=== PATIENT | male | born 1960 | race Caucasian/White ===

== ENCOUNTER 2019-06-29 20:19 | Inpatient (IN) | payer OTHER ==
[2019-06-29 20:32] LABS: ADD MAN DIFF? NO
[2019-06-29] MEDS: IPRATROPIUM (NEB) 0.5 MG/2.5 ML AMP INH (20:32)
[2019-06-29] MEDS: ALBUTEROL 0.5% (NEB) 2.5 MG/0.5 ML AMP INH (20:32)
[2019-06-29 20:33] LABS: WHITE BLOOD COUNT 6.1 10^3/ul (4.8-10.8)
[2019-06-29 20:33] LABS: ABNORMAL IP MESSAGE 1; BASOPHILS % 0.3 % (0.0-2.0); HEMATOCRIT 38.7 % (42.0-52.0); HEMOGLOBIN 12.7 g/dl (14.0-18.0); LYMPHOCYTES # 0.6 10^3/ul (0.8-2.9); LYMPHOCYTES % 9.6 % (15.0-51.0); MEAN CORPUSCULAR HGB CONC 32.8 g/dl (32.0-37.0); MEAN CORPUSCULAR VOLUME 91.3 fl (82.0-101.0); MEAN PLATELET VOLUME 10.9 fl (7.4-10.4); MONOCYTE # 0.4 10^3/ul (0.3-0.9); MONOCYTES % 6.8 % (0.0-11.0); PLATELET COUNT 107 10^3/UL (140-415); POSITIVE DIFF @See below; RED BLOOD COUNT 4.24 10^6/ul (4.70-6.10); RED CELL DISTRIBUTION WIDTH 14.6 % (11.5-14.5)
[2019-06-29] MEDS: METHYLPREDNISOLONE 125 MG INJ IV (20:40)
[2019-06-29 20:50] LABS: AADO2 Arterial 178.3 mmHg (7.0-24.0); Allen Test ACCEPTAB; Arterial Base Excess -0.1 mmol/L (-3.0-3); Arterial Blood Gas Oxygen Sat 98.3 mmHG (95.0-98.0); Arterial COHb 1.1 % (0.0-3.0); Arterial Fraction of Oxyhgb 96.9 % (93.0-99.0); Arterial HCO3 24.4 mmol/L (22.0-26.0); Arterial MetHb 0.3 % (0.0-1.5); Arterial pCO2 39.3 mmhg (35-45); MODE MASK - SIMPLE; Site Right Radial
[2019-06-29 20:51] LABS: ALANINE AMINOTRANSFERASE 42 IU/L (13-69); ALBUMIN 3.3 g/dl (3.3-4.9); ALBUMIN/GLOBULIN RATIO 1.03; ALKALINE PHOSPHATASE 88 IU/L (42-121); AMYLASE 43 U/L (11-123); ANION GAP 7 (5-13); ASPARTATE AMINO TRANSFERASE 19 IU/L (15-46); BILIRUBIN,INDIRECT 1.2 mg/dl (0-1.1); BILIRUBIN,TOTAL 1.2 mg/dl (0.2-1.3); BLOOD UREA NITROGEN 25 mg/dl (7-20); CALCIUM 8.6 mg/dl (8.4-10.2); CARBON DIOXIDE 26 mmol/L (21-31); CHLORIDE 103 mmol/L (97-110); CREATININE 1.29 mg/dl (0.61-1.24); Estimated GFR 57 mL/min (>60); LIPASE 32 U/L (23-300); POTASSIUM 4.1 mmol/L (3.5-5.1); SODIUM 136 mmol/L (135-144); TOTAL PROTEIN 6.5 g/dl (6.1-8.1)
[2019-06-29 20:55] LABS: GLUCOSE 454 mg/dl (70-220); INR 1.26; PROTIME 15.9 Sec (11.9-14.9); PT RATIO 1.2
[2019-06-29 20:56] LABS: PARTIAL THROMBOPLASTIN TIME 23.1 Sec (23.0-35.0)
[2019-06-29 21:02] LABS: TROPONIN-I 0.051 ng/ml (0.000-0.120)
[2019-06-29] MEDS: INSULIN LISPRO 100 UNIT/ML VIAL SC (21:29)
[2019-06-29] MEDS ORDERED: DEXTROSE 50% 50 ML SYRINGE IV ×2 (21:30)
[2019-06-29] MEDS ORDERED: GLUCAGON 1 MG INJ IM (21:30)
[2019-06-29] MEDS ORDERED: GLUCOSE GEL 15 GRAM TUBE PO ×2 (21:30)
[2019-06-29] MEDS ORDERED: GLUCOSE GEL 15 GRAM TUBE BUCCAL (21:30)
[2019-06-29] MEDS ORDERED: NALOXONE (0.4 MG/ML) INJ (21:37)
[2019-06-29] MEDS: NALOXONE 2 MG SYG IV (21:41)
[2019-06-29] MEDS: FUROSEMIDE 40 MG INJ IV (22:01)
[2019-06-29 22:23] LABS: AMMONIA 11 umol/l (9-30)
[2019-06-29 22:38] LABS: B-TYPE NATRIURETIC PEPTIDE 19700 PG/ML (0-125)
[2019-06-29] MEDS ORDERED: hydrALAzine 20 MG INJ IV (23:30)
[2019-06-29] MEDS ORDERED: DOCUSATE SODIUM 100 MG CAP PO (23:30)
[2019-06-29] MEDS ORDERED: NACL 0.9% 3 ML SYG IV (23:30)
[2019-06-29] MEDS ORDERED: BISACODYL (EC) 5 MG TAB PO (23:30)
[2019-06-29] MEDS ORDERED: ONDANSETRON 4 MG INJ IV (23:30)
[2019-06-30] MEDS: INSULIN GLARGINE [LANTus] (100 UNITS/ML) SYG SC ×3 (00:27→20:27)
[2019-06-30] MEDS: ALBUTEROL/IPRATROPIUM (NEB) 3 ML AMP HHN ×6 (01:15→20:36)
[2019-06-30] MEDS: ACCU-CHEK XX (02:56)
[2019-06-30] MEDS: INSULIN REGULAR, HUMAN 100 UNIT/1 ML 3ML VIAL IV (03:19)
[2019-06-30] MEDS: FUROSEMIDE 40 MG INJ IV ×2 (06:34→17:41)
[2019-06-30] MEDS: PANTOPRAZOLE (EC) 40 MG TAB PO (06:34)
[2019-06-30 06:45] LABS: ADD MAN DIFF? NO
[2019-06-30 06:48] LABS: ABNORMAL IP MESSAGE 1; HEMATOCRIT 38.4 % (42.0-52.0); HEMOGLOBIN 12.7 g/dl (14.0-18.0); LYMPHOCYTES # 0.2 10^3/ul (0.8-2.9); LYMPHOCYTES % 3.6 % (15.0-51.0); MEAN CORPUSCULAR HEMOGLOBIN 30.5 pg (29.0-33.0); MEAN CORPUSCULAR HGB CONC 33.1 g/dl (32.0-37.0); MEAN CORPUSCULAR VOLUME 92.3 fl (82.0-101.0); MEAN PLATELET VOLUME 10.8 fl (7.4-10.4); MONOCYTE # 0.1 10^3/ul (0.3-0.9); MONOCYTES % 1.3 % (0.0-11.0); NEUTROPHIL # 4.2 10^3/ul (1.6-7.5); NEUTROPHILS % 94.7 % (39.0-77.0); PLATELET COUNT 86 10^3/UL (140-415); POSITIVE DIFF @See below; RED BLOOD COUNT 4.16 10^6/ul (4.70-6.10); RED CELL DISTRIBUTION WIDTH 14.2 % (11.5-14.5)
[2019-06-30 06:48] LABS: WHITE BLOOD COUNT 4.5 10^3/ul (4.8-10.8)
[2019-06-30] MEDS: INSULIN ASPART [NOVOLOG] 3 ML PEN SC ×8 (06:56→21:23)
[2019-06-30 07:12] LABS: ALANINE AMINOTRANSFERASE 42 IU/L (13-69); ALBUMIN 3.2 g/dl (3.3-4.9); ALKALINE PHOSPHATASE 92 IU/L (42-121); ANION GAP 6 (5-13); ASPARTATE AMINO TRANSFERASE 18 IU/L (15-46); BILIRUBIN,INDIRECT 1.1 mg/dl (0-1.1); BILIRUBIN,TOTAL 1.1 mg/dl (0.2-1.3); BLOOD UREA NITROGEN 30 mg/dl (7-20); CALCIUM 8.4 mg/dl (8.4-10.2); CARBON DIOXIDE 27 mmol/L (21-31); CHLORIDE 102 mmol/L (97-110); CHOL/HDL RATIO 2.2 RATIO; CHOLESTEROL 93 mg/dl (100-200); CREATININE 1.47 mg/dl (0.61-1.24); Estimated GFR 49 mL/min (>60); HDL CHOLESTEROL 42 mg/dl (30-78); LDL CHOLESTEROL,CALCULATED 42 mg/dl; MAGNESIUM 1.7 mg/dl (1.7-2.5); POTASSIUM 4.3 mmol/L (3.5-5.1); SODIUM 135 mmol/L (135-144); TOTAL PROTEIN 6.4 g/dl (6.1-8.1); TRIGLYCERIDES 46 mg/dl (0-149)
[2019-06-30 07:23] LABS: GLUCOSE 429 mg/dl (70-220)
[2019-06-30 07:31] LABS: ETHANOL < 10.0 mg/dl (0-0)
[2019-06-30 07:41] LABS: THYROID STIMULATING HORMONE 0.302 MIU/L (0.465-4.680)
[2019-06-30 07:44] LABS: HEPATITIS B SURFACE ANTIGEN NEGATIVE (NEGATIVE)
[2019-06-30] MEDS ORDERED: INSULIN ASPART [NOVOLOG] 3 ML PEN SC (07:55)
[2019-06-30 08:01] LABS: HEPATITIS B SURFACE ANTIBODY POSITIVE (NEGATIVE)
[2019-06-30 08:03] LABS: HEPATITIS C VIRAL ANTIBODY REACTIVE (NEGATIVE)
[2019-06-30 08:09] LABS: CREATINE KINASE 39 IU/L (23-200)
[2019-06-30] MEDS: METHYLPREDNISOLONE 40 MG INJ IV ×2 (08:15)
[2019-06-30 08:22] LABS: CK INDEX 5.2; CK-MB 2.04 ng/ml (0.0-2.4); TROPONIN-I 0.036 ng/ml (0.000-0.120)
[2019-06-30] MEDS: NPH, HUMAN INSULIN ISOPHANE 3ML VIAL SC ×2 (08:25→11:39)
[2019-06-30] MEDS: NICOTINE (14 MG/24 HR) PATCH TRANSDERM (11:54)
[2019-06-30] MEDS ORDERED: hydrALAzine 20 MG INJ IV (12:00)
[2019-06-30 12:55] LABS: CREATINE KINASE 51 IU/L (23-200)
[2019-06-30 13:07] LABS: CK INDEX 4.2; CK-MB 2.16 ng/ml (0.0-2.4); TROPONIN-I 0.021 ng/ml (0.000-0.120)
[2019-06-30] MEDS: TIOTROPIUM 18 MCG CAPSULE INHA DEV INH (14:13)
[2019-06-30 16:11] LABS: ALANINE AMINOTRANSFERASE 30 IU/L (13-69); ALBUMIN 3.3 g/dl (3.3-4.9); ALBUMIN/GLOBULIN RATIO 1.03; ALKALINE PHOSPHATASE 79 IU/L (42-121); ANION GAP 10 (5-13); ASPARTATE AMINO TRANSFERASE 19 IU/L (15-46); BILIRUBIN,INDIRECT 0.9 mg/dl (0-1.1); BILIRUBIN,TOTAL 0.9 mg/dl (0.2-1.3); BLOOD UREA NITROGEN 39 mg/dl (7-20); CALCIUM 8.7 mg/dl (8.4-10.2); CARBON DIOXIDE 25 mmol/L (21-31); CHLORIDE 100 mmol/L (97-110); CREATINE KINASE 53 IU/L (23-200); CREATININE 1.64 mg/dl (0.61-1.24); Estimated GFR 43 mL/min (>60); GLUCOSE 373 mg/dl (70-220); POTASSIUM 4.4 mmol/L (3.5-5.1); SODIUM 135 mmol/L (135-144); TOTAL PROTEIN 6.5 g/dl (6.1-8.1)
[2019-06-30] MEDS: SPIRONOLACTONE 25 MG TAB PO (16:21)
[2019-06-30] MEDS: ASPIRIN (EC) 81 MG TAB PO (16:21)
[2019-06-30] MEDS: POTASSIUM CHLORIDE (SR) 20 MEQ TAB PO (16:21)
[2019-06-30 16:23] LABS: CK INDEX 5.3; TROPONIN-I 0.025 ng/ml (0.000-0.120)
[2019-06-30] MEDS ORDERED: ALBUTEROL HFA 8 GM INHALER INH (17:00)
[2019-06-30] MEDS ORDERED: NON-FORMULARY/PATIENT OWN MED (Insulin Lispro (Humalog Kwikpen U-100) 6 UNIT) SQ (17:00)
[2019-06-30 18:48] LABS: PROCALCITONIN 0.04 ng/mL (0.00-0.10)
[2019-06-30] MEDS ORDERED: INSULIN GLARGINE [LANTus] (100 UNITS/ML) SYG SC (20:00)
[2019-06-30] MEDS: traZODone 100 MG TAB PO (23:28)
[2019-07-01] MEDS: ALBUTEROL/IPRATROPIUM (NEB) 3 ML AMP HHN ×6 (01:20→20:35)
[2019-07-01] MEDS: ACCU-CHEK XX (02:00)
[2019-07-01] MEDS: FUROSEMIDE 40 MG INJ IV ×2 (05:49→17:08)
[2019-07-01] MEDS: PANTOPRAZOLE (EC) 40 MG TAB PO (05:49)
[2019-07-01 07:23] LABS: ADD MAN DIFF? NO
[2019-07-01 07:29] LABS: WHITE BLOOD COUNT 7.2 10^3/ul (4.8-10.8)
[2019-07-01 07:29] LABS: ABNORMAL IP MESSAGE 1; BASOPHILS % 0.1 % (0.0-2.0); EOSINOPHILS % 0.1 % (0.0-7.0); HEMATOCRIT 36.9 % (42.0-52.0); LYMPHOCYTES # 0.5 10^3/ul (0.8-2.9); LYMPHOCYTES % 6.7 % (15.0-51.0); MEAN CORPUSCULAR HEMOGLOBIN 30.3 pg (29.0-33.0); MEAN CORPUSCULAR HGB CONC 32.5 g/dl (32.0-37.0); MEAN CORPUSCULAR VOLUME 93.2 fl (82.0-101.0); MEAN PLATELET VOLUME 10.9 fl (7.4-10.4); MONOCYTE # 0.4 10^3/ul (0.3-0.9); MONOCYTES % 5.8 % (0.0-11.0); NEUTROPHIL # 6.2 10^3/ul (1.6-7.5); NEUTROPHILS % 86.9 % (39.0-77.0); PLATELET COUNT 88 10^3/UL (140-415); POSITIVE DIFF @See below; RED BLOOD COUNT 3.96 10^6/ul (4.70-6.10); RED CELL DISTRIBUTION WIDTH 14.4 % (11.5-14.5)
[2019-07-01 07:51] LABS: CREATINE KINASE 34 IU/L (23-200)
[2019-07-01 07:53] LABS: ALANINE AMINOTRANSFERASE 35 IU/L (13-69); ALBUMIN 3.1 g/dl (3.3-4.9); ALKALINE PHOSPHATASE 75 IU/L (42-121); ANION GAP 7 (5-13); ASPARTATE AMINO TRANSFERASE 16 IU/L (15-46); BILIRUBIN,INDIRECT 0.6 mg/dl (0-1.1); BILIRUBIN,TOTAL 0.6 mg/dl (0.2-1.3); BLOOD UREA NITROGEN 47 mg/dl (7-20); CALCIUM 8.5 mg/dl (8.4-10.2); CARBON DIOXIDE 27 mmol/L (21-31); CHLORIDE 98 mmol/L (97-110); CHOLESTEROL 86 mg/dl (100-200); CREATININE 1.69 mg/dl (0.61-1.24); Estimated GFR 42 mL/min (>60); GLUCOSE 333 mg/dl (70-220); HDL CHOLESTEROL 43 mg/dl (30-78); LDL CHOLESTEROL,CALCULATED 32 mg/dl; MAGNESIUM 1.8 mg/dl (1.7-2.5); POTASSIUM 4.2 mmol/L (3.5-5.1); SODIUM 132 mmol/L (135-144); TOTAL PROTEIN 6.2 g/dl (6.1-8.1); TRIGLYCERIDES 53 mg/dl (0-149)
[2019-07-01 08:05] LABS: TROPONIN-I 0.037 ng/ml (0.000-0.120)
[2019-07-01 08:06] LABS: CK-MB 3.05 ng/ml (0.0-2.4)
[2019-07-01] MEDS: TIOTROPIUM 18 MCG CAPSULE INHA DEV INH (08:26)
[2019-07-01] MEDS: predniSONE 20 MG TAB PO (08:27)
[2019-07-01] MEDS: BALSAM PERU/CASTOR OIL 60 GM TUBE TOP (08:27)
[2019-07-01] MEDS: NICOTINE (14 MG/24 HR) PATCH TRANSDERM (08:27)
[2019-07-01] MEDS: FERROUS SULFATE (EC) 325 MG TAB PO (08:28)
[2019-07-01] MEDS: ASPIRIN (EC) 81 MG TAB PO (08:28)
[2019-07-01] MEDS: LORATADINE 10 MG TAB PO (08:28)
[2019-07-01] MEDS: SPIRONOLACTONE 25 MG TAB PO (08:28)
[2019-07-01 08:32] LABS: FREE T4 (FREE THYROXINE) 1.34 ng/dl (0.78-2.44)
[2019-07-01] MEDS: INSULIN ASPART [NOVOLOG] 3 ML PEN SC ×7 (08:37→20:26)
[2019-07-01] MEDS: NPH, HUMAN INSULIN ISOPHANE 3ML VIAL SC (08:37)
[2019-07-01] MEDS ORDERED: ASPIRIN (EC) 81 MG TAB PO (09:00)
[2019-07-01 09:37] LABS: B-TYPE NATRIURETIC PEPTIDE 12000 PG/ML (0-125)
[2019-07-01] MEDS ORDERED: INSULIN ASPART [NOVOLOG] 3 ML PEN SC ×2 (12:30→17:55)
[2019-07-01] MEDS ORDERED: PROPRANOLOL 10 MG TAB PO (13:00)
[2019-07-01] MEDS: PROPRANOLOL 10 MG TAB PO (15:40)
[2019-07-01 18:05] LABS: ADD UMIC YES; UR ASCORBIC ACID NEGATIVE (NEGATIVE); UR BACTERIA FEW /HPF (NONE SEEN); UR BILIRUBIN (Dip) NEGATIVE (NEGATIVE); UR BLOOD (Dip) 1+ mg/dL (NEGATIVE); UR CLARITY CLEAR (CLEAR); UR COLOR YELLOW (YELLOW); UR GLUCOSE (Dip) NEGATIVE (NEGATIVE); UR KETONES (Dip) NEGATIVE (NEGATIVE); UR LEUKOCYTE ESTERASE (Dip) NEGATIVE Leu/ul (NEGATIVE); UR NITRITE (Dip) NEGATIVE (NEGATIVE); UR RBC 1 /HPF (0-5); UR SPECIFIC GRAVITY (Dip) 1.011 (1.003-1.030); UR TOTAL PROTEIN (Dip) 1+ mg/dl (NEGATIVE); UR UROBILINOGEN (Dip) NEGATIVE (NEGATIVE); UR WBC 1 /HPF (0-5)
[2019-07-01 18:11] LABS: CREATININE,URINE RANDOM 63.37 mg/dl (20-370); PROTEIN/CREAT RATIO 0.47 RATIO
[2019-07-01 18:23] LABS: AMPHETAMINE/METHAMPHETAMINE POSITIVE (NEGATIVE); BARBITURATES NEGATIVE (NEGATIVE); BENZODIAZEPINES NEGATIVE (NEGATIVE); CANNABINOIDS NEGATIVE (NEGATIVE); COCAINE NEGATIVE (NEGATIVE); OPIATES NEGATIVE (NEGATIVE)
[2019-07-01] MEDS ORDERED: INSULIN GLARGINE [LANTus] (100 UNITS/ML) SYG SC (20:00)
[2019-07-01] MEDS: INSULIN GLARGINE [LANTus] (100 UNITS/ML) SYG SC (20:35)
[2019-07-01] MEDS: METOPROLOL (XL) 25 MG TAB PO (20:50)
[2019-07-01] MEDS: MAGNESIUM SULFATE 3 GM in DEXTROSE 5% 100 ML IVPB (21:08)
[2019-07-01] MEDS: traZODone 100 MG TAB PO (21:13)
[2019-07-02] MEDS: ALBUTEROL/IPRATROPIUM (NEB) 3 ML AMP HHN ×6 (00:58→21:11)
[2019-07-02] MEDS: ACCU-CHEK XX ×2 (02:00→23:45)
[2019-07-02] MEDS: ACETAMINOPHEN 325 MG TAB PO (04:54)
[2019-07-02] MEDS: PANTOPRAZOLE (EC) 40 MG TAB PO (05:48)
[2019-07-02] MEDS: FUROSEMIDE 40 MG INJ IV (08:32)
[2019-07-02] MEDS: TIOTROPIUM 18 MCG CAPSULE INHA DEV INH (08:33)
[2019-07-02] MEDS: ASPIRIN (EC) 81 MG TAB PO (08:33)
[2019-07-02] MEDS: METOPROLOL (XL) 25 MG TAB PO ×2 (08:34→21:03)
[2019-07-02] MEDS: FERROUS SULFATE (EC) 325 MG TAB PO (08:34)
[2019-07-02] MEDS: predniSONE 20 MG TAB PO (08:34)
[2019-07-02] MEDS: SPIRONOLACTONE 25 MG TAB PO (08:34)
[2019-07-02] MEDS: NPH, HUMAN INSULIN ISOPHANE 3ML VIAL SC (08:35)
[2019-07-02] MEDS: INSULIN ASPART [NOVOLOG] 3 ML PEN SC ×8 (08:37→21:56)
[2019-07-02] MEDS: LORATADINE 10 MG TAB PO (08:38)
[2019-07-02] MEDS: NICOTINE (14 MG/24 HR) PATCH TRANSDERM (08:39)
[2019-07-02] MEDS: BALSAM PERU/CASTOR OIL 60 GM TUBE TOP (08:39)
[2019-07-02 08:57] LABS: ANION GAP 6 (5-13); BLOOD UREA NITROGEN 47 mg/dl (7-20); CALCIUM 8.4 mg/dl (8.4-10.2); CARBON DIOXIDE 31 mmol/L (21-31); CHLORIDE 94 mmol/L (97-110); CREATININE 1.54 mg/dl (0.61-1.24); Estimated GFR 46 mL/min (>60); GLUCOSE 291 mg/dl (70-220); POTASSIUM 4.1 mmol/L (3.5-5.1); SODIUM 131 mmol/L (135-144)
[2019-07-02] MEDS ORDERED: predniSONE 20 MG TAB PO (09:00)
[2019-07-02] MEDS ORDERED: NPH, HUMAN INSULIN ISOPHANE 3ML VIAL SC (09:00)
[2019-07-02 09:01] LABS: MAGNESIUM 2.3 mg/dl (1.7-2.5)
[2019-07-02 09:04] LABS: B-TYPE NATRIURETIC PEPTIDE 7150 PG/ML (0-125)
[2019-07-02 09:52] LABS: COMPLEMENT C3 49 mg/dl (88-165); COMPLEMENT C4 11 mg/dl (14-44)
[2019-07-02] MEDS: LEVOFLOXACIN 500MG/D5W (PMX) 100 ML IVPB (15:50)
[2019-07-02] MEDS: INSULIN GLARGINE [LANTus] (100 UNITS/ML) SYG SC (21:09)
[2019-07-02] MEDS: traZODone 50 MG TAB PO (21:52)
[2019-07-03] MEDS: ALBUTEROL/IPRATROPIUM (NEB) 3 ML AMP HHN ×6 (01:50→21:00)
[2019-07-03] MEDS: ACCU-CHEK XX (02:10)
[2019-07-03] MEDS: ALPRAZOLAM 0.25 MG TAB PO (03:40)
[2019-07-03] MEDS: PANTOPRAZOLE (EC) 40 MG TAB PO (05:39)
[2019-07-03] MEDS: INSULIN ASPART [NOVOLOG] 3 ML PEN SC ×7 (07:55→21:32)
[2019-07-03] MEDS: SPIRONOLACTONE 25 MG TAB PO (08:32)
[2019-07-03] MEDS: LORATADINE 10 MG TAB PO (08:32)
[2019-07-03] MEDS: ASPIRIN (EC) 81 MG TAB PO (08:32)
[2019-07-03] MEDS: METOPROLOL (XL) 25 MG TAB PO ×2 (08:37→20:45)
[2019-07-03] MEDS: FUROSEMIDE 40 MG INJ IV (08:38)
[2019-07-03] MEDS: BALSAM PERU/CASTOR OIL 60 GM TUBE TOP (08:38)
[2019-07-03] MEDS: FERROUS SULFATE (EC) 325 MG TAB PO (08:39)
[2019-07-03] MEDS: NICOTINE (14 MG/24 HR) PATCH TRANSDERM (08:39)
[2019-07-03] MEDS: TIOTROPIUM 18 MCG CAPSULE INHA DEV INH (08:39)
[2019-07-03 08:59] LABS: ADD MAN DIFF? NO
[2019-07-03 09:08] LABS: ABNORMAL IP MESSAGE 1; BASOPHILS % 0.4 % (0.0-2.0); EOSINOPHILS % 0.2 % (0.0-7.0); HEMATOCRIT 37.8 % (42.0-52.0); HEMOGLOBIN 12.2 g/dl (14.0-18.0); LYMPHOCYTES # 0.5 10^3/ul (0.8-2.9); LYMPHOCYTES % 8.1 % (15.0-51.0); MEAN CORPUSCULAR HEMOGLOBIN 30.8 pg (29.0-33.0); MEAN CORPUSCULAR HGB CONC 32.3 g/dl (32.0-37.0); MEAN CORPUSCULAR VOLUME 95.5 fl (82.0-101.0); MEAN PLATELET VOLUME 11.3 fl (7.4-10.4); MONOCYTE # 0.6 10^3/ul (0.3-0.9); MONOCYTES % 9.9 % (0.0-11.0); NEUTROPHIL # 4.6 10^3/ul (1.6-7.5); NEUTROPHILS % 80.9 % (39.0-77.0); PLATELET COUNT 94 10^3/UL (140-415); POSITIVE DIFF @See below; RED BLOOD COUNT 3.96 10^6/ul (4.70-6.10); RED CELL DISTRIBUTION WIDTH 14.3 % (11.5-14.5)
[2019-07-03 09:08] LABS: WHITE BLOOD COUNT 5.7 10^3/ul (4.8-10.8)
[2019-07-03 09:57] LABS: ANION GAP 7 (5-13); BLOOD UREA NITROGEN 49 mg/dl (7-20); CALCIUM 8.4 mg/dl (8.4-10.2); CARBON DIOXIDE 31 mmol/L (21-31); CHLORIDE 97 mmol/L (97-110); CREATININE 1.52 mg/dl (0.61-1.24); Estimated GFR 47 mL/min (>60); GLUCOSE 115 mg/dl (70-220); MAGNESIUM 2.2 mg/dl (1.7-2.5); PHOSPHORUS 4.3 mg/dl (2.5-4.9); POTASSIUM 4.1 mmol/L (3.5-5.1); SODIUM 135 mmol/L (135-144)
[2019-07-03] MEDS: LIDOCAINE 1% (MPF) 5 ML VIAL (12:07)
[2019-07-03 13:02] LABS: FLD PMN% 16.8 %; FLD RBC 9000 /uL; FLD WBC 553 /cmm
[2019-07-03 13:29] LABS: FLUID LD 227 U/L; FLUID TOTAL PROTEIN < 2.0 g/dl; FLUID TYPE THORACENTESIS FLUID
[2019-07-03 13:38] LABS: FLD CLARITY BLOODY; FLD COLOR RED; PATH REVIEW? YES
[2019-07-03 13:38] LABS: FLD TYPE THORACENTHESIS
[2019-07-03 13:39] LABS: FLUID TYPE THORACENTESIS FLUID
[2019-07-03 13:43] LABS: FLUID GLUCOSE 140 mg/dl
[2019-07-03] MEDS: LEVOFLOXACIN 500MG/D5W (PMX) 100 ML IVPB (16:23)
[2019-07-03 18:26] LABS: COMPLEMENT, TOTAL (CH50) <13 U/mL (31-60)
[2019-07-03] MEDS: INSULIN GLARGINE [LANTus] (100 UNITS/ML) SYG SC (20:56)
[2019-07-03] MEDS: traZODone 50 MG TAB PO (22:29)
[2019-07-04] MEDS: ALBUTEROL/IPRATROPIUM (NEB) 3 ML AMP HHN ×6 (01:33→20:46)
[2019-07-04] MEDS: ACCU-CHEK XX (02:20)
[2019-07-04] MEDS: PANTOPRAZOLE (EC) 40 MG TAB PO (06:28)
[2019-07-04] MEDS: LEVOFLOXACIN 500 MG TAB PO (06:28)
[2019-07-04] MEDS: INSULIN ASPART [NOVOLOG] 3 ML PEN SC ×7 (07:55→20:14)
[2019-07-04 08:10] LABS: ADD MAN DIFF? NO
[2019-07-04 08:14] LABS: ABNORMAL IP MESSAGE 1; BASOPHILS % 0.2 % (0.0-2.0); EOSINOPHILS % 0.2 % (0.0-7.0); HEMATOCRIT 37.3 % (42.0-52.0); HEMOGLOBIN 12.2 g/dl (14.0-18.0); LYMPHOCYTES # 0.4 10^3/ul (0.8-2.9); LYMPHOCYTES % 6.4 % (15.0-51.0); MEAN CORPUSCULAR HEMOGLOBIN 30.7 pg (29.0-33.0); MEAN CORPUSCULAR HGB CONC 32.7 g/dl (32.0-37.0); MEAN CORPUSCULAR VOLUME 93.7 fl (82.0-101.0); MEAN PLATELET VOLUME 10.8 fl (7.4-10.4); MONOCYTE # 0.4 10^3/ul (0.3-0.9); MONOCYTES % 7.1 % (0.0-11.0); NEUTROPHILS % 85.6 % (39.0-77.0); PLATELET COUNT 81 10^3/UL (140-415); POSITIVE DIFF @See below; RED BLOOD COUNT 3.98 10^6/ul (4.70-6.10); RED CELL DISTRIBUTION WIDTH 14.3 % (11.5-14.5)
[2019-07-04 08:14] LABS: WHITE BLOOD COUNT 5.8 10^3/ul (4.8-10.8)
[2019-07-04] MEDS: NICOTINE (14 MG/24 HR) PATCH TRANSDERM (08:42)
[2019-07-04] MEDS: SPIRONOLACTONE 25 MG TAB PO (08:43)
[2019-07-04] MEDS: ASPIRIN (EC) 81 MG TAB PO (08:43)
[2019-07-04] MEDS: FERROUS SULFATE (EC) 325 MG TAB PO (08:43)
[2019-07-04] MEDS: LORATADINE 10 MG TAB PO (08:43)
[2019-07-04 08:51] LABS: ANION GAP 3 (5-13); BLOOD UREA NITROGEN 41 mg/dl (7-20); CALCIUM 8.1 mg/dl (8.4-10.2); CARBON DIOXIDE 33 mmol/L (21-31); CHLORIDE 99 mmol/L (97-110); CREATININE 1.41 mg/dl (0.61-1.24); Estimated GFR 51 mL/min (>60); GLUCOSE 101 mg/dl (70-220); MAGNESIUM 2.1 mg/dl (1.7-2.5); POTASSIUM 4.2 mmol/L (3.5-5.1); SODIUM 135 mmol/L (135-144)
[2019-07-04] MEDS: METOPROLOL (XL) 25 MG TAB PO ×2 (08:52→20:18)
[2019-07-04] MEDS: FUROSEMIDE 40 MG TAB PO (08:53)
[2019-07-04] MEDS: BALSAM PERU/CASTOR OIL 60 GM TUBE TOP (08:53)
[2019-07-04] MEDS: TIOTROPIUM 18 MCG CAPSULE INHA DEV INH (11:32)
[2019-07-04] MEDS: LIDOCAINE 1% (MPF) 5 ML VIAL (13:15)
[2019-07-04] MEDS: INSULIN GLARGINE [LANTus] (100 UNITS/ML) SYG SC (20:15)
[2019-07-05] MEDS: ALBUTEROL/IPRATROPIUM (NEB) 3 ML AMP HHN ×6 (01:00→20:36)
[2019-07-05] MEDS: ACCU-CHEK XX (02:00)
[2019-07-05] MEDS: PANTOPRAZOLE (EC) 40 MG TAB PO (06:02)
[2019-07-05] MEDS: INSULIN ASPART [NOVOLOG] 3 ML PEN SC ×7 (07:39→21:49)
[2019-07-05] MEDS: TIOTROPIUM 18 MCG CAPSULE INHA DEV INH (07:58)
[2019-07-05] MEDS: BALSAM PERU/CASTOR OIL 60 GM TUBE TOP (07:59)
[2019-07-05] MEDS: NICOTINE (14 MG/24 HR) PATCH TRANSDERM (08:08)
[2019-07-05] MEDS: ASPIRIN (EC) 81 MG TAB PO (08:08)
[2019-07-05] MEDS: LORATADINE 10 MG TAB PO (08:08)
[2019-07-05] MEDS: FERROUS SULFATE (EC) 325 MG TAB PO (08:09)
[2019-07-05] MEDS: SPIRONOLACTONE 25 MG TAB PO (08:09)
[2019-07-05] MEDS: METOPROLOL (XL) 25 MG TAB PO ×2 (08:09→21:06)
[2019-07-05] MEDS: FUROSEMIDE 40 MG TAB PO (08:09)
[2019-07-05 09:45] LABS: ANION GAP 6 (5-13); BLOOD UREA NITROGEN 44 mg/dl (7-20); CALCIUM 8.4 mg/dl (8.4-10.2); CARBON DIOXIDE 32 mmol/L (21-31); CHLORIDE 98 mmol/L (97-110); CREATININE 1.52 mg/dl (0.61-1.24); Estimated GFR 47 mL/min (>60); GLUCOSE 247 mg/dl (70-220); POTASSIUM 4.2 mmol/L (3.5-5.1); SODIUM 136 mmol/L (135-144)
[2019-07-05 13:32] LABS: ANCA SCREEN NEGATIVE (NEGATIVE)
[2019-07-05 13:46] LABS: IRON 46 ug/dl (35-150)
[2019-07-05 13:55] LABS: % IRON SATURATION 15 % SAT (22-52); TOTAL IRON BINDING CAPACITY 309 ug/dl (241-421)
[2019-07-05 14:54] LABS: FERRITIN 36.9 ng/ml (11.1-264.0)
[2019-07-05 15:06] LABS: MYELOPEROXIDASE ANTIBODY <1.0 AI; PROTEINASE-3 ANTIBODY <1.0 AI
[2019-07-05] MEDS: LISINOPRIL 5 MG TAB PO (21:05)
[2019-07-05] MEDS: traZODone 50 MG TAB PO (21:09)
[2019-07-05] MEDS: INSULIN GLARGINE [LANTus] (100 UNITS/ML) SYG SC (21:49)
[2019-07-06] MEDS: ALBUTEROL/IPRATROPIUM (NEB) 3 ML AMP HHN ×6 (00:53→20:43)
[2019-07-06] MEDS: ACCU-CHEK XX (02:20)
[2019-07-06] MEDS: PANTOPRAZOLE (EC) 40 MG TAB PO (06:06)
[2019-07-06 06:48] LABS: ADD MAN DIFF? NO
[2019-07-06 06:55] LABS: WHITE BLOOD COUNT 4.8 10^3/ul (4.8-10.8)
[2019-07-06 06:55] LABS: ABNORMAL IP MESSAGE 1; HEMATOCRIT 39.1 % (42.0-52.0); HEMOGLOBIN 12.5 g/dl (14.0-18.0); MONOCYTE # 0.4 10^3/ul (0.3-0.9); NEUTROPHIL # 3.8 10^3/ul (1.6-7.5); POSITIVE DIFF @See below
[2019-07-06 07:20] LABS: BASOPHILS % 0.4 % (0.0-2.0); LYMPHOCYTES # 0.6 10^3/ul (0.8-2.9); LYMPHOCYTES % 11.7 % (15.0-51.0); MEAN PLATELET VOLUME 10.8 fl (7.4-10.4); MONOCYTES % 8.4 % (0.0-11.0); NEUTROPHILS % 78.9 % (39.0-77.0); PLATELET COUNT 82 10^3/UL (140-415); RED BLOOD COUNT 4.16 10^6/ul (4.70-6.10); RED CELL DISTRIBUTION WIDTH 14.3 % (11.5-14.5)
[2019-07-06 07:25] LABS: ALANINE AMINOTRANSFERASE 35 IU/L (13-69); ALBUMIN 2.7 g/dl (3.3-4.9); ALKALINE PHOSPHATASE 66 IU/L (42-121); ANION GAP 4 (5-13); ASPARTATE AMINO TRANSFERASE 21 IU/L (15-46); BILIRUBIN,INDIRECT 0.8 mg/dl (0-1.1); BILIRUBIN,TOTAL 0.8 mg/dl (0.2-1.3); BLOOD UREA NITROGEN 52 mg/dl (7-20); CALCIUM 8.3 mg/dl (8.4-10.2); CARBON DIOXIDE 30 mmol/L (21-31); CHLORIDE 102 mmol/L (97-110); CREATININE 1.39 mg/dl (0.61-1.24); Estimated GFR 52 mL/min (>60); GLUCOSE 194 mg/dl (70-220); MAGNESIUM 2.1 mg/dl (1.7-2.5); POTASSIUM 4.4 mmol/L (3.5-5.1); SODIUM 136 mmol/L (135-144); TOTAL PROTEIN 5.7 g/dl (6.1-8.1)
[2019-07-06] MEDS: INSULIN ASPART [NOVOLOG] 3 ML PEN SC ×7 (07:27→20:21)
[2019-07-06 07:29] LABS: B-TYPE NATRIURETIC PEPTIDE 7340 PG/ML (0-125)
[2019-07-06] MEDS: TIOTROPIUM 18 MCG CAPSULE INHA DEV INH (08:35)
[2019-07-06] MEDS: NICOTINE (14 MG/24 HR) PATCH TRANSDERM (08:36)
[2019-07-06] MEDS: BALSAM PERU/CASTOR OIL 60 GM TUBE TOP (08:36)
[2019-07-06] MEDS: FERROUS SULFATE (EC) 325 MG TAB PO (08:37)
[2019-07-06] MEDS: FUROSEMIDE 40 MG TAB PO (08:37)
[2019-07-06] MEDS: SPIRONOLACTONE 25 MG TAB PO (08:37)
[2019-07-06] MEDS: LORATADINE 10 MG TAB PO (08:37)
[2019-07-06] MEDS: ASPIRIN (EC) 81 MG TAB PO (08:37)
[2019-07-06] MEDS: METOPROLOL (XL) 25 MG TAB PO ×2 (08:38→20:18)
[2019-07-06] MEDS ORDERED: LISINOPRIL 5 MG TAB PO (09:00)
[2019-07-06] MEDS: LISINOPRIL 5 MG TAB PO ×2 (12:09→20:19)
[2019-07-06] MEDS: INSULIN GLARGINE [LANTus] (100 UNITS/ML) SYG SC (21:04)
[2019-07-06] MEDS: traZODone 50 MG TAB PO (21:10)
[2019-07-07] MEDS: ALBUTEROL/IPRATROPIUM (NEB) 3 ML AMP HHN ×5 (01:02→17:10)
[2019-07-07] MEDS: ACCU-CHEK XX (02:24)
[2019-07-07] MEDS: PANTOPRAZOLE (EC) 40 MG TAB PO (05:19)
[2019-07-07 07:36] LABS: ADD MAN DIFF? NO
[2019-07-07 07:51] LABS: WHITE BLOOD COUNT 4.7 10^3/ul (4.8-10.8)
[2019-07-07 07:51] LABS: ABNORMAL IP MESSAGE 1; BASOPHILS % 0.2 % (0.0-2.0); HEMATOCRIT 38.1 % (42.0-52.0); HEMOGLOBIN 12.3 g/dl (14.0-18.0); LYMPHOCYTES # 0.5 10^3/ul (0.8-2.9); LYMPHOCYTES % 10.4 % (15.0-51.0); MEAN CORPUSCULAR HEMOGLOBIN 30.1 pg (29.0-33.0); MEAN CORPUSCULAR HGB CONC 32.3 g/dl (32.0-37.0); MEAN CORPUSCULAR VOLUME 93.2 fl (82.0-101.0); MEAN PLATELET VOLUME 10.9 fl (7.4-10.4); MONOCYTE # 0.4 10^3/ul (0.3-0.9); MONOCYTES % 8.3 % (0.0-11.0); NEUTROPHIL # 3.8 10^3/ul (1.6-7.5); NEUTROPHILS % 80.5 % (39.0-77.0); PLATELET COUNT 86 10^3/UL (140-415); POSITIVE DIFF @See below; RED BLOOD COUNT 4.09 10^6/ul (4.70-6.10); RED CELL DISTRIBUTION WIDTH 14.2 % (11.5-14.5)
[2019-07-07] MEDS: INSULIN ASPART [NOVOLOG] 3 ML PEN SC ×6 (07:55→17:52)
[2019-07-07] MEDS: TIOTROPIUM 18 MCG CAPSULE INHA DEV INH (08:17)
[2019-07-07] MEDS: SPIRONOLACTONE 25 MG TAB PO (08:17)
[2019-07-07] MEDS: ASPIRIN (EC) 81 MG TAB PO (08:17)
[2019-07-07] MEDS: LORATADINE 10 MG TAB PO (08:18)
[2019-07-07] MEDS: FUROSEMIDE 40 MG TAB PO (08:18)
[2019-07-07] MEDS: FERROUS SULFATE (EC) 325 MG TAB PO (08:18)
[2019-07-07] MEDS: LISINOPRIL 5 MG TAB PO (08:18)
[2019-07-07] MEDS: METOPROLOL (XL) 25 MG TAB PO (08:18)
[2019-07-07] MEDS: NICOTINE (14 MG/24 HR) PATCH TRANSDERM (08:19)
[2019-07-07] MEDS: BALSAM PERU/CASTOR OIL 60 GM TUBE TOP (08:19)
[2019-07-07 08:33] LABS: ALANINE AMINOTRANSFERASE 27 IU/L (13-69); ALBUMIN 2.9 g/dl (3.3-4.9); ALKALINE PHOSPHATASE 60 IU/L (42-121); ANION GAP 5 (5-13); ASPARTATE AMINO TRANSFERASE 18 IU/L (15-46); BILIRUBIN,INDIRECT 0.6 mg/dl (0-1.1); BILIRUBIN,TOTAL 0.6 mg/dl (0.2-1.3); BLOOD UREA NITROGEN 51 mg/dl (7-20); CALCIUM 8.4 mg/dl (8.4-10.2); CARBON DIOXIDE 25 mmol/L (21-31); CHLORIDE 105 mmol/L (97-110); CREATININE 1.46 mg/dl (0.61-1.24); Estimated GFR 49 mL/min (>60); GLUCOSE 145 mg/dl (70-220); POTASSIUM 4.3 mmol/L (3.5-5.1); SODIUM 135 mmol/L (135-144); TOTAL PROTEIN 5.8 g/dl (6.1-8.1)
[2019-07-07 08:37] LABS: PHOSPHORUS 3.9 mg/dl (2.5-4.9)
[2019-07-07 08:37] LABS: MAGNESIUM 1.9 mg/dl (1.7-2.5)
[2019-07-07 13:11] LABS: FLD MN% 83.2 %
[2019-07-07 19:52] LABS: ANA SCREEN POSITIVE (NEGATIVE)
[2019-07-08 20:01] LABS: ANA PATTERN SPECKLED; ANA TITER 1:40 titer
== END 2019-07-07 19:13 | disposition home or self-care (01) | DRG 291 ==
LOC: TEL 23:14 → E/R 20:19
PROC: 0W993ZZ Drainage of Right Pleural Cavity, Percutaneous Approach (ICD-10-PCS; principal; 2019-07-03)
PROC: 0W9B3ZZ Drainage of Left Pleural Cavity, Percutaneous Approach (ICD-10-PCS; 2019-07-04)
DX: I13.0 Hypertensive heart and chronic kidney disease with heart failure and stage 1 through stage 4 chronic kidney disease, or unspecified chronic kidney disease (principal); J96.00 Acute respiratory failure, unspecified whether with hypoxia or hypercapnia; I50.23 Acute on chronic systolic (congestive) heart failure; J18.9 Pneumonia, unspecified organism; J44.1 Chronic obstructive pulmonary disease with (acute) exacerbation; N17.9 Acute kidney failure, unspecified; J90 Pleural effusion, not elsewhere classified; K76.6 Portal hypertension; N18.9 Chronic kidney disease, unspecified; E11.22 Type 2 diabetes mellitus with diabetic chronic kidney disease; E11.65 Type 2 diabetes mellitus with hyperglycemia; Z59.0 Homelessness; Z72.0 Tobacco use; R00.2 Palpitations; R07.9 Chest pain, unspecified; B19.20 Unspecified viral hepatitis C without hepatic coma; K74.60 Unspecified cirrhosis of liver; I25.2 Old myocardial infarction; I44.0 Atrioventricular block, first degree; I45.10 Unspecified right bundle-branch block
CPT/HCPCS: 32555; 36600; 70450; 71045; 71250; 76604; 76775; 76942; 80048; 80053; 80061; 80307; 81001; 81003; 82140; 82150; 82550; 82553; 82570; 82595; 82728; 82803; 82945; 82962; 83036; 83540; 83615; 83690; 83735; 83880; 84100; 84145; 84157; 84439; 84443; 84484; 85025; 85610; 85730; 86021; 86038; 86160; 86162; 86706; 86803; 87070; 87102; 87116; 87340; 88104; 88305; 89051; 93005; 93306; 94640; 94644; 94660; 94664; 96372; 96374; 96375; 99291-25

== ENCOUNTER 2019-07-25 21:57 | Inpatient (IN) | payer OTHER ==
[2019-07-25 22:24] LABS: ADD MAN DIFF? NO
[2019-07-25 22:25] LABS: WHITE BLOOD COUNT 9.2 10^3/ul (4.8-10.8)
[2019-07-25 22:25] LABS: BASOPHILS % 0.3 % (0.0-2.0); EOSINOPHILS % 0.1 % (0.0-7.0); HEMATOCRIT 42.5 % (42.0-52.0); HEMOGLOBIN 13.4 g/dl (14.0-18.0); LYMPHOCYTES # 0.6 10^3/ul (0.8-2.9); LYMPHOCYTES % 6.6 % (15.0-51.0); MEAN CORPUSCULAR HEMOGLOBIN 29.5 pg (29.0-33.0); MEAN CORPUSCULAR HGB CONC 31.5 g/dl (32.0-37.0); MEAN CORPUSCULAR VOLUME 93.4 fl (82.0-101.0); MEAN PLATELET VOLUME 9.9 fl (7.4-10.4); MONOCYTE # 0.5 10^3/ul (0.3-0.9); MONOCYTES % 5.6 % (0.0-11.0); NEUTROPHILS % 87.1 % (39.0-77.0); PLATELET COUNT 168 10^3/UL (140-415); RED BLOOD COUNT 4.55 10^6/ul (4.70-6.10)
[2019-07-25 22:42] LABS: ANION GAP 8 (5-13); BLOOD UREA NITROGEN 15 mg/dl (7-20); CARBON DIOXIDE 26 mmol/L (21-31); CHLORIDE 104 mmol/L (97-110); CREATININE 1.22 mg/dl (0.61-1.24); Estimated GFR > 60 mL/min (>60); GLUCOSE 345 mg/dl (70-220); POTASSIUM 4.2 mmol/L (3.5-5.1); SODIUM 138 mmol/L (135-144)
[2019-07-25 22:54] LABS: TROPONIN-I 0.037 ng/ml (0.000-0.120)
[2019-07-25] MEDS ORDERED: GUAIFENESIN/DM 5ML CUP PO (23:30)
[2019-07-25] MEDS ORDERED: ACETAMINOPHEN 325 MG TAB PO ×2 (23:30)
[2019-07-25] MEDS ORDERED: NACL 0.9% 3 ML SYG IV (23:30)
[2019-07-25] MEDS ORDERED: ONDANSETRON 4 MG INJ IV ×2 (23:30)
[2019-07-25 23:44] LABS: ETHANOL < 10.0 mg/dl (0-0)
[2019-07-25] MEDS: ACCU-CHEK XX (23:50)
[2019-07-26] LABS: B-TYPE NATRIURETIC PEPTIDE 24300 PG/ML (0-125)
[2019-07-26] MEDS: FUROSEMIDE 40 MG INJ IV ×3 (00:13→17:35)
[2019-07-26] MEDS: LISINOPRIL 5 MG TAB PO ×3 (00:14→20:44)
[2019-07-26] MEDS: INSULIN ASPART [NOVOLOG] 3 ML PEN SC ×8 (00:16→20:49)
[2019-07-26] MEDS ORDERED: GLUCOSE GEL 15 GRAM TUBE BUCCAL (01:30)
[2019-07-26] MEDS ORDERED: GLUCAGON 1 MG INJ IM (01:30)
[2019-07-26] MEDS ORDERED: GLUCOSE GEL 15 GRAM TUBE PO ×2 (01:30)
[2019-07-26] MEDS ORDERED: DEXTROSE 50% 50 ML SYRINGE IV ×2 (01:30)
[2019-07-26] MEDS: ACCU-CHEK XX (02:02)
[2019-07-26 02:34] LABS: MAGNESIUM 1.8 mg/dl (1.7-2.5)
[2019-07-26] MEDS: MAGNESIUM SULFATE 2 GM/50 ML 50 ML IVPB (02:34)
[2019-07-26] MEDS: NITROGLYCERIN (SL) 0.4 MG TAB SL ×2 (02:38→02:50)
[2019-07-26 03:18] LABS: CREATINE KINASE 37 IU/L (23-200)
[2019-07-26] MEDS ORDERED: LEVALBUTEROL (NEB) 1.25 MG/0.5 ML AMP HHN (03:30)
[2019-07-26] MEDS ORDERED: hydrALAzine 20 MG INJ IV (03:30)
[2019-07-26] MEDS ORDERED: IPRATROPIUM (NEB) 0.5 MG/2.5 ML AMP HHN (03:30)
[2019-07-26 03:31] LABS: CK INDEX 5.4; CK-MB 2.01 ng/ml (0.0-2.4); TROPONIN-I 0.047 ng/ml (0.000-0.120)
[2019-07-26] MEDS: FUROSEMIDE 20 MG INJ IV (03:34)
[2019-07-26 03:50] LABS: AADO2 Arterial 100.8 mmHg (7.0-24.0); Allen Test ACCEPTAB; Arterial Base Excess 0.2 mmol/L (-3.0-3); Arterial Blood Gas Oxygen Sat 95.5 mmHG (95.0-98.0); Arterial COHb 1.2 % (0.0-3.0); Arterial Fraction of Oxyhgb 94.2 % (93.0-99.0); Arterial HCO3 23.3 mmol/L (22.0-26.0); Arterial MetHb 0.2 % (0.0-1.5); Arterial pCO2 33.4 mmhg (35-45); MODE NASAL CANNULA; Site Right Radial
[2019-07-26] MEDS: METOPROLOL (XL) 25 MG TAB PO ×2 (04:15→20:45)
[2019-07-26] MEDS ORDERED: PENDING SANTYL ORDER FOR WOUND CARE XX (05:00)
[2019-07-26] MEDS: PANTOPRAZOLE (EC) 40 MG TAB PO (05:57)
[2019-07-26 06:48] LABS: AMPHETAMINE/METHAMPHETAMINE Negative (NEGATIVE); BARBITURATES Negative (NEGATIVE); BENZODIAZEPINES Negative (NEGATIVE); CANNABINOIDS Negative (NEGATIVE); COCAINE Negative (NEGATIVE); OPIATES Negative (NEGATIVE)
[2019-07-26] MEDS: ASPIRIN (EC) 81 MG TAB PO (08:11)
[2019-07-26] MEDS: FERROUS SULFATE (EC) 325 MG TAB PO (08:11)
[2019-07-26] MEDS: CHOLECALCIFEROL 1,000 UNIT TAB PO (08:12)
[2019-07-26] MEDS: SPIRONOLACTONE 25 MG TAB PO (08:12)
[2019-07-26] MEDS: ENOXAPARIN 40 MG/0.4 ML SYG SC (08:17)
[2019-07-26] MEDS: TIOTROPIUM 18 MCG CAPSULE INHA DEV INH (09:00)
[2019-07-26 11:34] LABS: ADD MAN DIFF? NO
[2019-07-26 11:45] LABS: BASOPHILS % 0.3 % (0.0-2.0); EOSINOPHILS % 0.2 % (0.0-7.0); HEMATOCRIT 40.6 % (42.0-52.0); HEMOGLOBIN 12.9 g/dl (14.0-18.0); LYMPHOCYTES # 0.7 10^3/ul (0.8-2.9); LYMPHOCYTES % 10.5 % (15.0-51.0); MEAN CORPUSCULAR HEMOGLOBIN 29.4 pg (29.0-33.0); MEAN CORPUSCULAR HGB CONC 31.8 g/dl (32.0-37.0); MEAN CORPUSCULAR VOLUME 92.5 fl (82.0-101.0); MEAN PLATELET VOLUME 10.3 fl (7.4-10.4); MONOCYTE # 0.4 10^3/ul (0.3-0.9); MONOCYTES % 7.1 % (0.0-11.0); NEUTROPHILS % 81.4 % (39.0-77.0); PLATELET COUNT 136 10^3/UL (140-415); RED BLOOD COUNT 4.39 10^6/ul (4.70-6.10)
[2019-07-26 11:45] LABS: WHITE BLOOD COUNT 6.2 10^3/ul (4.8-10.8)
[2019-07-26 11:58] LABS: ALANINE AMINOTRANSFERASE 33 IU/L (13-69); ALBUMIN 3.2 g/dl (3.3-4.9); ALBUMIN/GLOBULIN RATIO 1.14; ALKALINE PHOSPHATASE 83 IU/L (42-121); ANION GAP 5 (5-13); ASPARTATE AMINO TRANSFERASE 22 IU/L (15-46); BILIRUBIN,INDIRECT 1.3 mg/dl (0-1.1); BILIRUBIN,TOTAL 1.3 mg/dl (0.2-1.3); BLOOD UREA NITROGEN 14 mg/dl (7-20); CALCIUM 8.7 mg/dl (8.4-10.2); CARBON DIOXIDE 30 mmol/L (21-31); CHLORIDE 103 mmol/L (97-110); CREATININE 1.04 mg/dl (0.61-1.24); Estimated GFR > 60 mL/min (>60); GLUCOSE 174 mg/dl (70-220); POTASSIUM 3.7 mmol/L (3.5-5.1); SODIUM 138 mmol/L (135-144)
[2019-07-26 11:59] LABS: CREATINE KINASE 33 IU/L (23-200)
[2019-07-26 12:08] LABS: CK INDEX 5.4; CK-MB 1.79 ng/ml (0.0-2.4); TROPONIN-I 0.031 ng/ml (0.000-0.120)
[2019-07-26] MEDS: INSULIN GLARGINE [LANTus] (100 UNITS/ML) SYG SC (12:28)
[2019-07-26] MEDS: LORAZEPAM 1 MG TAB PO (17:34)
[2019-07-26] MEDS: traZODone 50 MG TAB PO (22:30)
[2019-07-26] MEDS: LORAZEPAM 2 MG INJ IV (22:57)
[2019-07-26 23:42] LABS: ANION GAP 4 (5-13); BLOOD UREA NITROGEN 33 mg/dl (7-20); CALCIUM 8.9 mg/dl (8.4-10.2); CARBON DIOXIDE 31 mmol/L (21-31); CHLORIDE 102 mmol/L (97-110); CREATININE 1.16 mg/dl (0.61-1.24); Estimated GFR > 60 mL/min (>60); GLUCOSE 101 mg/dl (70-220); MAGNESIUM 1.8 mg/dl (1.7-2.5); POTASSIUM 3.9 mmol/L (3.5-5.1); SODIUM 137 mmol/L (135-144)
[2019-07-27] MEDS: ACCU-CHEK XX (02:00)
[2019-07-27] MEDS: FUROSEMIDE 40 MG INJ IV ×2 (05:39→17:41)
[2019-07-27] MEDS: PANTOPRAZOLE (EC) 40 MG TAB PO (05:44)
[2019-07-27 06:12] LABS: ADD MAN DIFF? NO
[2019-07-27 06:20] LABS: WHITE BLOOD COUNT 8.7 10^3/ul (4.8-10.8)
[2019-07-27 06:20] LABS: BASOPHILS % 0.3 % (0.0-2.0); HEMATOCRIT 43.7 % (42.0-52.0); LYMPHOCYTES # 0.7 10^3/ul (0.8-2.9); LYMPHOCYTES % 7.7 % (15.0-51.0); MEAN CORPUSCULAR HEMOGLOBIN 29.2 pg (29.0-33.0); MEAN PLATELET VOLUME 10.3 fl (7.4-10.4); MONOCYTE # 0.5 10^3/ul (0.3-0.9); MONOCYTES % 5.4 % (0.0-11.0); NEUTROPHIL # 7.5 10^3/ul (1.6-7.5); NEUTROPHILS % 86.1 % (39.0-77.0); PLATELET COUNT 156 10^3/UL (140-415); RED CELL DISTRIBUTION WIDTH 14.2 % (11.5-14.5)
[2019-07-27 06:51] LABS: ALANINE AMINOTRANSFERASE 30 IU/L (13-69); ALBUMIN 3.3 g/dl (3.3-4.9); ALBUMIN/GLOBULIN RATIO 1.03; ALKALINE PHOSPHATASE 91 IU/L (42-121); ANION GAP 7 (5-13); ASPARTATE AMINO TRANSFERASE 27 IU/L (15-46); BILIRUBIN,INDIRECT 0.9 mg/dl (0-1.1); BILIRUBIN,TOTAL 0.9 mg/dl (0.2-1.3); BLOOD UREA NITROGEN 31 mg/dl (7-20); CALCIUM 9.1 mg/dl (8.4-10.2); CARBON DIOXIDE 30 mmol/L (21-31); CHLORIDE 103 mmol/L (97-110); CREATININE 1.16 mg/dl (0.61-1.24); Estimated GFR > 60 mL/min (>60); GLUCOSE 86 mg/dl (70-220); POTASSIUM 3.9 mmol/L (3.5-5.1); SODIUM 140 mmol/L (135-144); TOTAL PROTEIN 6.5 g/dl (6.1-8.1)
[2019-07-27] MEDS: INSULIN ASPART [NOVOLOG] 3 ML PEN SC ×6 (07:55→20:37)
[2019-07-27] MEDS: CHOLECALCIFEROL 1,000 UNIT TAB PO (08:18)
[2019-07-27] MEDS: ASPIRIN (EC) 81 MG TAB PO (08:18)
[2019-07-27] MEDS: LISINOPRIL 5 MG TAB PO ×2 (08:18→20:58)
[2019-07-27] MEDS: METOPROLOL (XL) 25 MG TAB PO ×2 (08:18→20:58)
[2019-07-27] MEDS: SPIRONOLACTONE 25 MG TAB PO (08:18)
[2019-07-27] MEDS: FERROUS SULFATE (EC) 325 MG TAB PO (08:19)
[2019-07-27] MEDS: TIOTROPIUM 18 MCG CAPSULE INHA DEV INH (08:19)
[2019-07-27] MEDS: INSULIN GLARGINE [LANTus] (100 UNITS/ML) SYG SC (08:21)
[2019-07-27] MEDS: ENOXAPARIN 40 MG/0.4 ML SYG SC (08:22)
[2019-07-27] MEDS: LORAZEPAM 2 MG INJ IV (11:17)
[2019-07-27] MEDS: LEVALBUTEROL (NEB) 1.25 MG/0.5 ML AMP HHN (21:12)
[2019-07-27] MEDS: IPRATROPIUM (NEB) 0.5 MG/2.5 ML AMP HHN (21:12)
[2019-07-27] MEDS: HALOPERIDOL 5 MG INJ IM (21:24)
[2019-07-27] MEDS: NICOTINE (21 MG/24 HR) PATCH TRANSDERM (21:25)
[2019-07-27] MEDS: NICOTINE POLACRILEX 2 MG GUM BUCCAL (22:00)
[2019-07-27] MEDS ORDERED: DIPHENHYDRAMINE 50 MG INJ IV (23:30)
[2019-07-27] MEDS: DIPHENHYDRAMINE 50 MG CAP PO (23:42)
[2019-07-27] MEDS: NA BICARBONATE 8.4% 50 ML SYG IV (23:48)
[2019-07-28] MEDS: ACCU-CHEK XX (02:00)
[2019-07-28] MEDS: traZODone 50 MG TAB PO ×2 (03:51→20:17)
[2019-07-28 06:30] LABS: ADD MAN DIFF? NO
[2019-07-28 06:35] LABS: WHITE BLOOD COUNT 7.8 10^3/ul (4.8-10.8)
[2019-07-28 06:35] LABS: BASOPHILS % 0.4 % (0.0-2.0); EOSINOPHILS % 0.1 % (0.0-7.0); HEMATOCRIT 42.3 % (42.0-52.0); HEMOGLOBIN 14.1 g/dl (14.0-18.0); LYMPHOCYTES # 0.6 10^3/ul (0.8-2.9); LYMPHOCYTES % 8.1 % (15.0-51.0); MEAN CORPUSCULAR HEMOGLOBIN 29.6 pg (29.0-33.0); MEAN CORPUSCULAR HGB CONC 33.3 g/dl (32.0-37.0); MEAN CORPUSCULAR VOLUME 88.9 fl (82.0-101.0); MEAN PLATELET VOLUME 10.1 fl (7.4-10.4); MONOCYTE # 0.5 10^3/ul (0.3-0.9); NEUTROPHIL # 6.6 10^3/ul (1.6-7.5); NEUTROPHILS % 85.1 % (39.0-77.0); PLATELET COUNT 143 10^3/UL (140-415); RED BLOOD COUNT 4.76 10^6/ul (4.70-6.10); RED CELL DISTRIBUTION WIDTH 14.1 % (11.5-14.5)
[2019-07-28] MEDS: FUROSEMIDE 40 MG INJ IV ×2 (06:52→17:36)
[2019-07-28] MEDS: PANTOPRAZOLE (EC) 40 MG TAB PO (06:52)
[2019-07-28 07:02] LABS: ALANINE AMINOTRANSFERASE 27 IU/L (13-69); ALBUMIN 3.1 g/dl (3.3-4.9); ALKALINE PHOSPHATASE 81 IU/L (42-121); ANION GAP 7 (5-13); ASPARTATE AMINO TRANSFERASE 23 IU/L (15-46); BILIRUBIN,INDIRECT 0.8 mg/dl (0-1.1); BILIRUBIN,TOTAL 0.8 mg/dl (0.2-1.3); BLOOD UREA NITROGEN 41 mg/dl (7-20); CALCIUM 8.8 mg/dl (8.4-10.2); CARBON DIOXIDE 32 mmol/L (21-31); CHLORIDE 99 mmol/L (97-110); CREATININE 1.32 mg/dl (0.61-1.24); Estimated GFR 55 mL/min (>60); GLUCOSE 104 mg/dl (70-220); POTASSIUM 3.5 mmol/L (3.5-5.1); SODIUM 138 mmol/L (135-144); TOTAL PROTEIN 6.2 g/dl (6.1-8.1)
[2019-07-28] MEDS: METOPROLOL (XL) 25 MG TAB PO ×2 (07:08→20:17)
[2019-07-28] MEDS: INSULIN ASPART [NOVOLOG] 3 ML PEN SC ×4 (07:55→20:43)
[2019-07-28] MEDS: TIOTROPIUM 18 MCG CAPSULE INHA DEV INH (08:25)
[2019-07-28] MEDS: LISINOPRIL 5 MG TAB PO ×2 (08:28→20:17)
[2019-07-28] MEDS: FERROUS SULFATE (EC) 325 MG TAB PO (08:28)
[2019-07-28] MEDS: CHOLECALCIFEROL 1,000 UNIT TAB PO (08:28)
[2019-07-28] MEDS: ASPIRIN (EC) 81 MG TAB PO (08:28)
[2019-07-28] MEDS: SPIRONOLACTONE 25 MG TAB PO (08:28)
[2019-07-28] MEDS: NICOTINE (21 MG/24 HR) PATCH TRANSDERM (08:29)
[2019-07-28] MEDS: ENOXAPARIN 40 MG/0.4 ML SYG SC (08:37)
[2019-07-28] MEDS: INSULIN GLARGINE [LANTus] (100 UNITS/ML) SYG SC (08:37)
[2019-07-28] MEDS: LORAZEPAM 2 MG INJ IV (14:29)
[2019-07-28] MEDS: HEPARIN 5,000 UNIT/1 ML VIAL SC (20:43)
[2019-07-29] MEDS: ACCU-CHEK XX (02:58)
[2019-07-29] MEDS: PANTOPRAZOLE (EC) 40 MG TAB PO (06:09)
[2019-07-29] MEDS: FUROSEMIDE 40 MG INJ IV (06:09)
[2019-07-29 08:28] LABS: ADD MAN DIFF? NO
[2019-07-29] MEDS: TIOTROPIUM 18 MCG CAPSULE INHA DEV INH (08:28)
[2019-07-29] MEDS: METOPROLOL (XL) 25 MG TAB PO ×2 (08:29→20:07)
[2019-07-29] MEDS: LISINOPRIL 5 MG TAB PO ×2 (08:29→20:08)
[2019-07-29] MEDS: FERROUS SULFATE (EC) 325 MG TAB PO (08:29)
[2019-07-29] MEDS: SPIRONOLACTONE 25 MG TAB PO (08:29)
[2019-07-29] MEDS: CHOLECALCIFEROL 1,000 UNIT TAB PO (08:29)
[2019-07-29] MEDS: ASPIRIN (EC) 81 MG TAB PO (08:29)
[2019-07-29] MEDS: NICOTINE (21 MG/24 HR) PATCH TRANSDERM (08:30)
[2019-07-29] MEDS: INSULIN GLARGINE [LANTus] (100 UNITS/ML) SYG SC (08:40)
[2019-07-29] MEDS: HEPARIN 5,000 UNIT/1 ML VIAL SC ×2 (08:40→20:12)
[2019-07-29] MEDS: INSULIN ASPART [NOVOLOG] 3 ML PEN SC ×4 (08:40→20:07)
[2019-07-29 08:47] LABS: WHITE BLOOD COUNT 6.6 10^3/ul (4.8-10.8)
[2019-07-29 08:47] LABS: BASOPHILS % 0.3 % (0.0-2.0); EOSINOPHILS % 0.2 % (0.0-7.0); HEMOGLOBIN 12.7 g/dl (14.0-18.0); LYMPHOCYTES # 0.6 10^3/ul (0.8-2.9); LYMPHOCYTES % 9.7 % (15.0-51.0); MEAN CORPUSCULAR HEMOGLOBIN 29.7 pg (29.0-33.0); MEAN CORPUSCULAR HGB CONC 32.6 g/dl (32.0-37.0); MEAN CORPUSCULAR VOLUME 91.1 fl (82.0-101.0); MEAN PLATELET VOLUME 10.5 fl (7.4-10.4); MONOCYTE # 0.4 10^3/ul (0.3-0.9); MONOCYTES % 6.7 % (0.0-11.0); NEUTROPHIL # 5.4 10^3/ul (1.6-7.5); NEUTROPHILS % 82.5 % (39.0-77.0); PLATELET COUNT 130 10^3/UL (140-415); RED BLOOD COUNT 4.28 10^6/ul (4.70-6.10)
[2019-07-29 09:01] LABS: ALANINE AMINOTRANSFERASE 39 IU/L (13-69); ALBUMIN 3.1 g/dl (3.3-4.9); ALBUMIN/GLOBULIN RATIO 1.03; ALKALINE PHOSPHATASE 74 IU/L (42-121); ASPARTATE AMINO TRANSFERASE 35 IU/L (15-46); BILIRUBIN,INDIRECT 0.6 mg/dl (0-1.1); BILIRUBIN,TOTAL 0.6 mg/dl (0.2-1.3); BLOOD UREA NITROGEN 59 mg/dl (7-20); CALCIUM 8.9 mg/dl (8.4-10.2); CARBON DIOXIDE 31 mmol/L (21-31); CHLORIDE 101 mmol/L (97-110); CREATININE 1.67 mg/dl (0.61-1.24); Estimated GFR 42 mL/min (>60); GLUCOSE 163 mg/dl (70-220); POTASSIUM 4.3 mmol/L (3.5-5.1); TOTAL PROTEIN 6.1 g/dl (6.1-8.1)
[2019-07-29 09:57] LABS: ANION GAP 3 (5-13); SODIUM 135 mmol/L (135-144)
[2019-07-29] MEDS: LORAZEPAM 2 MG INJ IV (10:40)
[2019-07-29] MEDS: NICOTINE POLACRILEX 2 MG GUM BUCCAL (17:08)
[2019-07-29] MEDS: traZODone 50 MG TAB PO (20:07)
[2019-07-30] MEDS: ACCU-CHEK XX ×2 (02:00→20:33)
[2019-07-30] MEDS: PANTOPRAZOLE (EC) 40 MG TAB PO (06:15)
[2019-07-30 06:50] LABS: ADD MAN DIFF? NO
[2019-07-30 06:53] LABS: ABNORMAL IP MESSAGE 1; BASOPHILS % 0.4 % (0.0-2.0); EOSINOPHILS % 0.2 % (0.0-7.0); HEMATOCRIT 37.3 % (42.0-52.0); LYMPHOCYTES # 0.6 10^3/ul (0.8-2.9); LYMPHOCYTES % 10.3 % (15.0-51.0); MEAN CORPUSCULAR HEMOGLOBIN 29.3 pg (29.0-33.0); MEAN CORPUSCULAR HGB CONC 32.2 g/dl (32.0-37.0); MEAN CORPUSCULAR VOLUME 91.2 fl (82.0-101.0); MEAN PLATELET VOLUME 10.6 fl (7.4-10.4); MONOCYTE # 0.4 10^3/ul (0.3-0.9); MONOCYTES % 7.1 % (0.0-11.0); NEUTROPHIL # 4.6 10^3/ul (1.6-7.5); NEUTROPHILS % 81.6 % (39.0-77.0); PLATELET COUNT 111 10^3/UL (140-415); POSITIVE DIFF @See below; RED BLOOD COUNT 4.09 10^6/ul (4.70-6.10); RED CELL DISTRIBUTION WIDTH 13.9 % (11.5-14.5)
[2019-07-30 06:53] LABS: WHITE BLOOD COUNT 5.7 10^3/ul (4.8-10.8)
[2019-07-30 07:32] LABS: ALANINE AMINOTRANSFERASE 46 IU/L (13-69); ALBUMIN 2.8 g/dl (3.3-4.9); ALBUMIN/GLOBULIN RATIO 0.93; ALKALINE PHOSPHATASE 70 IU/L (42-121); ANION GAP 5 (5-13); ASPARTATE AMINO TRANSFERASE 46 IU/L (15-46); BILIRUBIN,INDIRECT 0.5 mg/dl (0-1.1); BILIRUBIN,TOTAL 0.5 mg/dl (0.2-1.3); BLOOD UREA NITROGEN 60 mg/dl (7-20); CALCIUM 8.6 mg/dl (8.4-10.2); CARBON DIOXIDE 28 mmol/L (21-31); CHLORIDE 102 mmol/L (97-110); CREATININE 1.67 mg/dl (0.61-1.24); Estimated GFR 42 mL/min (>60); GLUCOSE 140 mg/dl (70-220); POTASSIUM 4.7 mmol/L (3.5-5.1); SODIUM 135 mmol/L (135-144); TOTAL PROTEIN 5.8 g/dl (6.1-8.1)
[2019-07-30] MEDS: INSULIN ASPART [NOVOLOG] 3 ML PEN SC ×4 (07:55→20:17)
[2019-07-30] MEDS: TIOTROPIUM 18 MCG CAPSULE INHA DEV INH (08:13)
[2019-07-30] MEDS: METOPROLOL (XL) 25 MG TAB PO ×2 (08:14→20:18)
[2019-07-30] MEDS: FERROUS SULFATE (EC) 325 MG TAB PO (08:14)
[2019-07-30] MEDS: ASPIRIN (EC) 81 MG TAB PO (08:14)
[2019-07-30] MEDS: CHOLECALCIFEROL 1,000 UNIT TAB PO (08:14)
[2019-07-30] MEDS: SPIRONOLACTONE 25 MG TAB PO (08:14)
[2019-07-30] MEDS: LISINOPRIL 5 MG TAB PO ×2 (08:15→20:18)
[2019-07-30] MEDS: NICOTINE (21 MG/24 HR) PATCH TRANSDERM (08:21)
[2019-07-30] MEDS: HEPARIN 5,000 UNIT/1 ML VIAL SC ×2 (08:38→20:22)
[2019-07-30] MEDS: INSULIN GLARGINE [LANTus] (100 UNITS/ML) SYG SC (08:39)
[2019-07-30] MEDS: LORAZEPAM 2 MG INJ IV ×2 (11:09→22:34)
[2019-07-30] MEDS: traZODone 50 MG TAB PO (20:17)
[2019-07-31] MEDS: PANTOPRAZOLE (EC) 40 MG TAB PO (06:16)
[2019-07-31] MEDS: INSULIN ASPART [NOVOLOG] 3 ML PEN SC ×2 (07:50→11:39)
[2019-07-31] MEDS: INSULIN GLARGINE [LANTus] (100 UNITS/ML) SYG SC (08:01)
[2019-07-31] MEDS: FERROUS SULFATE (EC) 325 MG TAB PO (09:25)
[2019-07-31] MEDS: METOPROLOL (XL) 25 MG TAB PO (09:25)
[2019-07-31] MEDS: CHOLECALCIFEROL 1,000 UNIT TAB PO (09:25)
[2019-07-31] MEDS: ASPIRIN (EC) 81 MG TAB PO (09:25)
[2019-07-31] MEDS: TIOTROPIUM 18 MCG CAPSULE INHA DEV INH (09:25)
[2019-07-31] MEDS: LISINOPRIL 5 MG TAB PO (09:25)
[2019-07-31] MEDS: SPIRONOLACTONE 25 MG TAB PO (09:26)
[2019-07-31] MEDS: NICOTINE (21 MG/24 HR) PATCH TRANSDERM (09:26)
[2019-07-31] MEDS: HEPARIN 5,000 UNIT/1 ML VIAL SC (09:32)
[2019-07-31] MEDS: LORAZEPAM 2 MG INJ IV (10:49)
== END 2019-07-31 16:50 | disposition home or self-care (01) | DRG 291 ==
LOC: TEL 23:12 → E/R 21:57
DX: I11.0 Hypertensive heart disease with heart failure (principal); L89.153 Pressure ulcer of sacral region, stage 3; J96.01 Acute respiratory failure with hypoxia; K74.60 Unspecified cirrhosis of liver; Z59.0 Homelessness; J44.9 Chronic obstructive pulmonary disease, unspecified; F41.9 Anxiety disorder, unspecified; F17.200 Nicotine dependence, unspecified, uncomplicated; I44.7 Left bundle-branch block, unspecified; I50.23 Acute on chronic systolic (congestive) heart failure; E11.9 Type 2 diabetes mellitus without complications
CPT/HCPCS: 36415; 36600; 71045; 80048; 80053; 80307; 82550; 82553; 82803; 82962; 83735; 83880; 84484; 85025; 93005; 94664; 97116; 97162; 97530; 99285-25